=== PATIENT | male | born 1960 | race Caucasian/White ===

== ENCOUNTER → 2019-06-11 14:11 | Outpatient (CLI) | payer MEDICARE, OTHER ==
--- NOTE | ~2019-06-11 | HEMODYNAMI ---
PATIENT:KENDRA MUNOZ MEDICAL RECORD: [id number] : 58 LOCATION:[facility] ADMISSION DATE: 06/11/19 Generatedon:06/11/201915:04 Patient name: KENDRA MUNOZ Patient #: [id number] SSN: DO B: 1960 Date of study: 06/11/2019 Page: Of Hemodynamic Procedure Report Patient Data Patient Demographics Procedure consent was obtained First Name: KENDRA Gender: Male Last Name: ALEXANDER : 1960 Patient #: [id number] Age: 59 year(s) Race: Unknown Additional ID: [id number] Contact details [address]: [address] [place] [address] State: [place] City: [place] Zip code: [address] Past Medical History Allergies Allergen Reaction Date Comments Reported Other allergy 06/11/2019 pcn Admission Admission Data Admission Date: 06/11/2019 Admission Time: 14:11 Procedure Procedure Types Cath Procedure Peripheral Cath Diagnostic Procedure Miscellaneous Cathetergram Procedure Description Procedure Date Procedure Date: 06/11/2019 Procedure Start Time: 15:00 Procedure End Time: 15:03 Procedure Staff Name Function Madisyn Syed MD Performing Physician RAHEL MOULTON Monitor Procedure Data Cath Procedure Fluoroscopy Diagnostic fluoroscopy Total fluoroscopy Time: 0.7 time: 0.7 min min Hemodynamics Rest Pre Cath Intra NCS Post Cath Procedure Log Time Note 14:43:54 RAHEL GREENE RT (R) sent for patient. Start room use. 14:43:56 Time tracking: Regular hours (M-F 7:00 - 5:00) 14:44:01 Patient received from Other to IR Alert and oriented. Tansferred to table in Supine position. 14:44:03 Signed procedure consent form obtained from patient. 14:44:04 Warm blankets applied, and jennifer hugger turned on for patient comfort. 14:44:04 Correct patient and procedure confirmed by team. 14:44:08 - 14:44:09 Pre-procedure instructions explained to patient. 14:44:10 Pre-op teaching completed and patient verbalized understanding. 14:46:51 Patient allergic to Other allergypcn 14:46:54 Is patient on blood thinner?Yes 14:47:03 ACC The patient was administered the following blood thiners within the last 24 hours: ACCPlavix 14:47:19 Alarms reviewed by RDwayne NDwayne 14:47:20 Sharps counted by scrub and verified by RDwayneN. 14:55:45 Physician arrived 14:55:46 --------ALL STOP TIME OUT------ 14:56:00 Right chest site verified by team. 14:56:08 - 14:56:12 Use device set IR Diagnostic 14:56:12 Sterile Angiographic Pack opened to sterile field. 14:56:13 Bag Decanter ([id number]) opened to sterile field. 14:56:13 Tegaderm 4 x 4 ([id number]) opened to sterile field. 15:00:13 Procedure started. 15:00:13 Full Disclosure recording started 15:02:30 Procedure ended.(Physican Out) 15:02:35 Fluoroscopy time 00.70 minutes. 15:02:39 Dose Area Product 4 mGy/cm. 15:03:24 Post-op/insertion site Right Chest area dressed using a 4 x 4 and Tegaderm. 15:03:43 Procedure and supply charges have been captured, reviewed, submitted an d are correct. 15:03:46 Post procedure instruction explained to patient.Patient verbalizes understanding. 15:03:54 Procedure ended. 15:03:54 Full Disclosure recording stopped Device Usage Item Name Manufacture Quantity Catalog Hospital Part Current Minimal Lot# / Number Charge Number Stock Stock Serial# Code Sterile Cardinal 1 [id number] Angiographic Health Pack Bag Decanter Microtek 1 [id number] () [employer] Tegaderm 4 x 3M 1 [id number] 4 ([id number]) Signature Audit [place] Stage Time Signature Unsigned Intra-Procedure 06/11/2019 RAHEL GREENE RT 3:04:10 PM (R) [facility] [address] [place] [address]
== END | disposition home or self-care (01) ==
LOC: D.SP 14:00
PROVIDERS: ATTEND Internal Medicine Medical Oncology
DX: C82.03 Follicular lymphoma grade I, intra-abdominal lymph nodes (principal); Z79.899 Other long term (current) drug therapy